=== PATIENT | male | born 1995 | race Hispanic/Latino ===

== ENCOUNTER 2017-12-29 18:27 | Inpatient (IN) | payer OTHER ==
[~2017-12-29] VITALS: Ht 182.9 cm; Wt 143.3 kg
[2017-12-29] MEDS ORDERED: ACETAMINOPHEN-CODEINE ELIXIR 5 ML UDCUP ONE (19:38)
[2017-12-29 19:49] LABS: BASOPHILS % (AUTO) 0.7 % (0.0-5.0); HEMATOCRIT 42.9 % (42-54); LYMPHOCYTES % (AUTO) 11.5 % (21.0-51.0); MEAN CORPUSCULAR HEMOGLOBIN 29.4 pg (27.0-33.0); MEAN CORPUSCULAR HGB CONC 34.2 g/dL (32.0-36.0); MEAN CORPUSCULAR VOLUME 86.1 fL (79-99); MONOCYTES % (AUTO) 6.2 % (3.0-13.0); NEUTROPHILS % (AUTO) 80.6 % (40.0-77.0); NUCLEATED RED BLOOD CELLS 0.2 % (0.0-0.19); PLATELET COUNT (AUTO) 381 K/uL (130-400); RED BLOOD CELL COUNT(AUTO) 4.98 MIL/uL (4.50-6.20); RED CELL DISTRIBUTION WIDTH 13.8 % (11.0-15.5); WHITE BLOOD COUNT (AUTO) 11.6 K/uL (4.8-10.8)
[2017-12-29] MEDS ORDERED: SODIUM CHLORIDE 0.9% 1000ML 1,000 ML IV ONE (20:11)
[2017-12-29] MEDS ORDERED: ZOSYN 3.375GM+NS 50ML 50 ML IV ONE (20:11)
[2017-12-29] MEDS ORDERED: SODIUM CHLORIDE 0.9% 100 ML IV ONE (20:12)
[2017-12-29 20:24] LABS: ALBUMIN 2.7 g/dL (3.5-5.0); BILIRUBIN,TOTAL 0.5 mg/dL (0.2-1.0); CREATININE 1.3 mg/dL (0.5-1.5); TOTAL PROTEIN, SERUM 9.1 g/dL (6.0-8.3)
[2017-12-29] MEDS ORDERED: LACTATED RINGERS 1000ML 1,000 ML IV ONE (20:24)
[2017-12-29] MEDS ORDERED: AMPICILLIN SODIUM/SULBACTAM NA 1.5GM VIAL ONE (20:24)
[2017-12-29] MEDS ORDERED: GLUCAGON 1MG KIT 1 MG ML IM PRN (21:30)
[2017-12-29] MEDS ORDERED: DEXTROSE 50%-WATER 50 ML DISP.SYRIN IV PRN (21:30)
[2017-12-29] MEDS ORDERED: SODIUM CHLORIDE 0.9% 10 ML VIAL IVP PRN (21:30)
[2017-12-29 23:45] VITALS: BP 135/68
[2017-12-30] MEDS ORDERED: METF-444 PO (00:01)
[2017-12-30] MEDS ORDERED: LISI10TA7 PO (00:01)
[2017-12-30] MEDS: LACTATED RINGERS 1000ML 1,000 ML IV SCH ×4 (00:09→20:22)
[2017-12-30] MEDS: ONDANSETRON HCL 4 MG/2 ML VIAL IVP PRN ×2 (00:18→08:51)
[2017-12-30] MEDS: MORPHINE SULFATE 4 MG/1ML SYG IVP PRN ×2 (00:18→08:52)
[2017-12-30] MEDS: UNASYN 3GM+NS 100ML 100 ML IV SCH ×4 (03:34→20:21)
[2017-12-30 03:45] LABS: BASOPHILS % (AUTO) 0.7 % (0.0-5.0); EOSINOPHILS % (AUTO) 0.6 % (0.0-8.0); HEMATOCRIT 39.2 % (42-54); LYMPHOCYTES % (AUTO) 17.6 % (21.0-51.0); MEAN CORPUSCULAR HEMOGLOBIN 28.3 pg (27.0-33.0); MEAN CORPUSCULAR HGB CONC 33.1 g/dL (32.0-36.0); MEAN CORPUSCULAR VOLUME 85.6 fL (79-99); MONOCYTES % (AUTO) 8.5 % (3.0-13.0); NEUTROPHILS % (AUTO) 72.6 % (40.0-77.0); PLATELET COUNT (AUTO) 286 K/uL (130-400); RED BLOOD CELL COUNT(AUTO) 4.58 MIL/uL (4.50-6.20); RED CELL DISTRIBUTION WIDTH 13.9 % (11.0-15.5); WHITE BLOOD COUNT (AUTO) 8.5 K/uL (4.8-10.8)
[2017-12-30 03:52] LABS: HEMOGLOBIN A1C 11.8 % (4.0-6.0)
[2017-12-30 03:58] LABS: ALBUMIN 2.4 g/dL (3.5-5.0); BILIRUBIN,TOTAL 0.4 mg/dL (0.2-1.0); CREATININE 1.1 mg/dL (0.5-1.5); POTASSIUM 3.9 mmol/L (3.5-5.1); TOTAL PROTEIN, SERUM 8.1 g/dL (6.0-8.3)
[2017-12-30 04:15] LABS: CRP QUANTITATIVE 413.2 mg/L (0.00-9.0)
[2017-12-30 04:31] VITALS: BP 136/66
[2017-12-30] MEDS ORDERED: INSULIN R PO SS1 SQ SCH (07:30)
[2017-12-30 07:45] VITALS: BP 131/65
[2017-12-30] MEDS ORDERED: ENOXAPARIN SODIUM 40 MG/0.4 ML SYRINGE SQ SCH (09:00)
[2017-12-30] MEDS: PANTOPRAZOLE SODIUM 40 MG TABLET.DR PO SCH (09:00)
[2017-12-30 11:23] VITALS: BP 131/78
[2017-12-30] MEDS: INSULIN HUMULIN R 100 UNIT/ML 3ML SQ SCH ×3 (12:18→23:44)
[2017-12-30] MEDS ORDERED: MEPERIDINE-PF 25 MG/ML SYG IVP PRN (13:45)
[2017-12-30 16:48] VITALS: BP 152/89
[2017-12-30 19:50] VITALS: BP 136/83
[2017-12-31] VITALS: BP 146/63
[2017-12-31] MEDS: UNASYN 3GM+NS 100ML 100 ML IV SCH ×4 (03:19→19:55)
[2017-12-31] MEDS: LACTATED RINGERS 1000ML 1,000 ML IV SCH ×3 (03:35→19:56)
[2017-12-31 03:38] VITALS: BP 133/78
[2017-12-31] MEDS: INSULIN HUMULIN R 100 UNIT/ML 3ML SQ SCH ×3 (05:53→18:33)
[2017-12-31 07:53] VITALS: BP 138/67
[2017-12-31] MEDS: PANTOPRAZOLE SODIUM 40 MG TABLET.DR PO SCH (09:00)
[2017-12-31 11:58] VITALS: BP 128/69
[2017-12-31 15:53] VITALS: BP 132/71
[2017-12-31 19:38] VITALS: BP 140/85
[2017-12-31] MEDS: INSULIN GLARGINE 100 UNITS/ML 10 ML VIAL SQ SCH (21:01)
[2018-01-01] VITALS (7 sets, daily range): BP systolic 137–157; BP diastolic 77–93
[2018-01-01] MEDS: UNASYN 3GM+NS 100ML 100 ML IV SCH ×4 (02:31→22:21)
[2018-01-01 04:22] LABS: BASOPHILS % (AUTO) 0.7 % (0.0-5.0); EOSINOPHILS % (AUTO) 2.1 % (0.0-8.0); HEMATOCRIT 40.1 % (42-54); LYMPHOCYTES % (AUTO) 15.4 % (21.0-51.0); MEAN CORPUSCULAR HEMOGLOBIN 28.2 pg (27.0-33.0); MEAN CORPUSCULAR HGB CONC 32.9 g/dL (32.0-36.0); MEAN CORPUSCULAR VOLUME 85.7 fL (79-99); MONOCYTES % (AUTO) 7.2 % (3.0-13.0); NEUTROPHILS % (AUTO) 74.6 % (40.0-77.0); PLATELET COUNT (AUTO) 326 K/uL (130-400); RED BLOOD CELL COUNT(AUTO) 4.68 MIL/uL (4.50-6.20); RED CELL DISTRIBUTION WIDTH 13.8 % (11.0-15.5); WHITE BLOOD COUNT (AUTO) 10.1 K/uL (4.8-10.8)
[2018-01-01 04:30] LABS: INR 0.98 (0.85-1.15); PROTHROMBIN TIME 10.3 SEC (9.6-11.6)
[2018-01-01 04:34] LABS: ALBUMIN 2.4 g/dL (3.5-5.0); BILIRUBIN,TOTAL 0.3 mg/dL (0.2-1.0); CREATININE 0.9 mg/dL (0.5-1.5); POTASSIUM 3.6 mmol/L (3.5-5.1); TOTAL PROTEIN, SERUM 8.4 g/dL (6.0-8.3)
[2018-01-01] MEDS: LACTATED RINGERS 1000ML 1,000 ML IV SCH ×3 (05:10→19:52)
[2018-01-01] MEDS: INSULIN HUMULIN R 100 UNIT/ML 3ML SQ SCH ×5 (06:15→23:55)
[2018-01-01] MEDS ORDERED: POTASSIUM CHLORIDE 20MEQ/100ML 100 ML IV PRN (08:15)
[2018-01-01] MEDS ORDERED: LIDOCAINE HCL-MPF 1% 2ML VIAL IVP PRN (08:15)
[2018-01-01] MEDS: PANTOPRAZOLE 40 MG/VIAL IVP SCH (09:48)
[2018-01-01] MEDS: INSULIN GLARGINE 100 UNITS/ML 10 ML VIAL SQ SCH (22:25)
[2018-01-02] MEDS: UNASYN 3GM+NS 100ML 100 ML IV SCH ×4 (03:43→20:44)
[2018-01-02 04:09] VITALS: BP 148/91
[2018-01-02] MEDS: LACTATED RINGERS 1000ML 1,000 ML IV SCH ×3 (05:14→22:51)
[2018-01-02 05:24] LABS: HEMATOCRIT 40.2 % (42-54); LYMPHOCYTES % (AUTO) 24.4 % (21.0-51.0); MEAN CORPUSCULAR HEMOGLOBIN 29.2 pg (27.0-33.0); MEAN CORPUSCULAR HGB CONC 34.1 g/dL (32.0-36.0); MEAN CORPUSCULAR VOLUME 85.8 fL (79-99); NEUTROPHILS % (AUTO) 63.6 % (40.0-77.0); NUCLEATED RED BLOOD CELLS 0.1 % (0.0-0.19); PLATELET COUNT (AUTO) 425 K/uL (130-400); RED BLOOD CELL COUNT(AUTO) 4.69 MIL/uL (4.50-6.20); RED CELL DISTRIBUTION WIDTH 14.2 % (11.0-15.5)
[2018-01-02 05:40] LABS: ALBUMIN 2.5 g/dL (3.5-5.0); BILIRUBIN,TOTAL 0.4 mg/dL (0.2-1.0); POTASSIUM 3.5 mmol/L (3.5-5.1); TOTAL PROTEIN, SERUM 8.6 g/dL (6.0-8.3)
[2018-01-02] MEDS: INSULIN HUMULIN R 100 UNIT/ML 3ML SQ SCH ×4 (06:56→23:39)
[2018-01-02 07:48] VITALS: BP 155/95
[2018-01-02] MEDS: PANTOPRAZOLE 40 MG/VIAL IVP SCH (10:22)
[2018-01-02 11:36] VITALS: BP 146/96
[2018-01-02 16:24] VITALS: BP 141/91
[2018-01-02 19:53] VITALS: BP 144/82
[2018-01-02] MEDS: INSULIN GLARGINE 100 UNITS/ML 10 ML VIAL SQ SCH (20:49)
[2018-01-02 23:00] VITALS: BP 141/79
[2018-01-03] VITALS (24 sets, daily range): BP systolic 105–150; BP diastolic 51–91
[2018-01-03] MEDS: UNASYN 3GM+NS 100ML 100 ML IV SCH ×3 (03:30→15:54)
[2018-01-03 04:57] LABS: BASOPHILS % (AUTO) 0.8 % (0.0-5.0); EOSINOPHILS % (AUTO) 2.9 % (0.0-8.0); HEMATOCRIT 35.3 % (42-54); LYMPHOCYTES % (AUTO) 21.5 % (21.0-51.0); MEAN CORPUSCULAR HEMOGLOBIN 28.2 pg (27.0-33.0); MEAN CORPUSCULAR HGB CONC 33.3 g/dL (32.0-36.0); MEAN CORPUSCULAR VOLUME 84.7 fL (79-99); MONOCYTES % (AUTO) 5.7 % (3.0-13.0); NEUTROPHILS % (AUTO) 69.1 % (40.0-77.0); NUCLEATED RED BLOOD CELLS 0.1 % (0.0-0.19); PLATELET COUNT (AUTO) 296 K/uL (130-400); RED BLOOD CELL COUNT(AUTO) 4.16 MIL/uL (4.50-6.20); RED CELL DISTRIBUTION WIDTH 13.7 % (11.0-15.5); WHITE BLOOD COUNT (AUTO) 7.4 K/uL (4.8-10.8)
[2018-01-03 05:01] LABS: CREATININE 0.9 mg/dL (0.5-1.5); POTASSIUM 3.9 mmol/L (3.5-5.1)
[2018-01-03] MEDS: INSULIN HUMULIN R 100 UNIT/ML 3ML SQ SCH ×3 (06:00→17:43)
[2018-01-03] MEDS ORDERED: BUPIVACAINE/EPI/PF 0.5% 30ML VIAL IJ ONE (08:42)
[2018-01-03] MEDS ORDERED: SODIUM CHLORIDE 0.9% 1000ML 1,000 ML IV ONE (08:47)
[2018-01-03] MEDS: PANTOPRAZOLE 40 MG/VIAL IVP SCH (09:00)
[2018-01-03] MEDS ORDERED: IOHEXOL-350 50ML VIAL IV ONE (09:13)
[2018-01-03] MEDS ORDERED: ONDANSETRON HCL 4 MG/2 ML VIAL ONE (09:37)
[2018-01-03] MEDS ORDERED: DEXAMETHASONE SOD PHOSPHATE 10MG/ML 1ML VIAL ONE (09:37)
[2018-01-03] MEDS ORDERED: NEOSTIGMINE 5MG/5ML SYR IV ONE (09:37)
[2018-01-03] MEDS ORDERED: ROCURONIUM 10MG/1ML SYR 10 MG/ML ML ONE ×2 (09:37→10:17)
[2018-01-03] MEDS ORDERED: LIDOCAINE PF 2% 5ML ABBOJECT ONE (09:37)
[2018-01-03] MEDS ORDERED: MIDAZOLAM HCL 1 MG/ML 2ML VIAL ONE (09:37)
[2018-01-03] MEDS ORDERED: PROPOFOL 10 MG/ML 20ML VIAL IV ONE ×2 (09:37→10:53)
[2018-01-03] MEDS ORDERED: FENTANYL CITRATE PF 50 MCG/1 ML 2ML VIAL ONE (09:38)
[2018-01-03] MEDS ORDERED: GLYCOPYRROLATE 1 MG/5 ML SYRINGE ONE (11:28)
[2018-01-03] MEDS ORDERED: MEPERIDINE-PF 25 MG/ML SYG ONE ×2 (11:56→12:07)
[2018-01-03] MEDS ORDERED: TRAMADOL HCL 50 MG TABLET PO PRN ×2 (13:15)
[2018-01-03] MEDS ORDERED: ACETAMINOPHEN 325 MG TAB PO PRN (13:15)
[2018-01-03] MEDS ORDERED: MEPERIDINE-PF 25 MG/ML SYG IV PRN (13:15)
[2018-01-03] MEDS: LACTATED RINGERS 1000ML 1,000 ML IV SCH (13:46)
[2018-01-03] MEDS ORDERED: METF-444 PO (16:52)
== END 2018-01-03 18:59 | disposition home or self-care (01) | DRG 853 ==
LOC: EDH 18:27 → EDHIP 18:28 → 4BH 23:55
PROVIDERS: ADMIT Hospitalist; ATTEND Hospitalist
PROC: BF131ZZ Fluoroscopy of Gallbladder and Bile Ducts using Low Osmolar Contrast (ICD-10-PCS; 2018-01-03)
PROC: 0FT44ZZ Resection of Gallbladder, Percutaneous Endoscopic Approach (ICD-10-PCS; principal; 2018-01-03 09:35)
DX: A41.9 Sepsis, unspecified organism (principal); K65.9 Peritonitis, unspecified; K80.00 Calculus of gallbladder with acute cholecystitis without obstruction; Z68.41 Body mass index [BMI] 40.0-44.9, adult; E66.01 Morbid (severe) obesity due to excess calories; E86.0 Dehydration; I10 Essential (primary) hypertension; E11.65 Type 2 diabetes mellitus with hyperglycemia; K29.70 Gastritis, unspecified, without bleeding; K76.0 Fatty (change of) liver, not elsewhere classified; R16.0 Hepatomegaly, not elsewhere classified; Z79.4 Long term (current) use of insulin; Z79.899 Other long term (current) drug therapy; Z90.49 Acquired absence of other specified parts of digestive tract; Z91.19 Patient's noncompliance with other medical treatment and regimen
CPT/HCPCS: 36415; 74300; 76705; 80048; 80053; 82948; 83036; 83605; 83690; 85025; 85610; 86140; 88304; C1758; C9113; J0295; J1100; J1650; J1815; J2001; J2175; J2250; J2270; J2405; J2543; J2704; J2710; J3010; J3490; J7030; J7120; Q9967

== ENCOUNTER 2022-02-02 13:36 | Inpatient (IN) | payer OTHER ==
[~2022-02-02] VITALS: Ht 182.9 cm; Wt 131.7 kg
[~2022-02-02 13:36] MED LIST: LISI10TA24 PO; METF-444 PO
[2022-02-02] MEDS ORDERED: DICYCLOMINE HCL 10 MG/5 ML ML PO ONE (14:00)
[2022-02-02] MEDS ORDERED: MAG/ALUM/SIMETH 30 ML UDCUP PO ONE (14:00)
[2022-02-02] MEDS ORDERED: ONDANSETRON 4MG INJ IVP ONE (14:00)
[2022-02-02] MEDS ORDERED: LIDOCAINE HCL 2% VISCOUS 15 ML UDCUP PO ONE (14:00)
[2022-02-02] MEDS ORDERED: FAMOTIDINE 20MG VIAL IV ONE (14:00)
[2022-02-02 14:10] LABS: BASOPHILS % (AUTO) 0.5 % (0.0-5.0); EOSINOPHILS % (AUTO) 0.2 % (0.0-8.0); HEMATOCRIT 45.4 % (42-54); MEAN CORPUSCULAR HEMOGLOBIN 29.3 pg (27.0-33.0); MEAN CORPUSCULAR HGB CONC 33.5 g/dL (32.0-36.0); MEAN CORPUSCULAR VOLUME 87.5 fL (79-99); MONOCYTES % (AUTO) 5.4 % (3.0-13.0); NEUTROPHILS % (AUTO) 83.4 % (40.0-77.0); PLATELET COUNT (AUTO) 284 K/uL (130-400); RED BLOOD CELL COUNT(AUTO) 5.19 MIL/uL (4.50-6.20); RED CELL DISTRIBUTION WIDTH 15.2 % (11.0-15.5); WHITE BLOOD COUNT (AUTO) 8.8 K/uL (4.8-10.8)
[2022-02-02 14:35] LABS: APPEARANCE,URINE CLEAR (CLEAR); BILIRUBIN,URINE 2 mg/dL (NEGATIVE); COLOR,URINE DARK-YELLOW (YELLOW); CREATININE 0.9 mg/dL (0.5-1.5); GLUCOSE, URINE (UA) >=1000 mg/dL (NEGATIVE); KETONES,URINE 100 mg/dL (NEGATIVE); LEUKOCYTE ESTERASE ,URINE NEGATIVE Leu/uL (NEGATIVE); NITRATE,URINE NEGATIVE (NEGATIVE); OCCULT BLOOD,URINE NEGATIVE (NEGATIVE); PH,URINE 5.5 (5.0-8.0); POTASSIUM 4.7 mmol/L (3.5-5.1); PROTEIN,URINE 20 mg/dL (NEGATIVE); UROBILINOGEN,URINE 3 mg/dL (0.2-1.0)
[2022-02-02 14:36] LABS: RBC,URINE 0-1 /HPF (0-1); SQUAMOUS EPITHELIAL CELL,UR RARE /HPF (0-2)
[2022-02-02] MEDS ORDERED: INSULIN HUMULIN R 100 UNIT/ML 3ML IV ONE (15:00)
[2022-02-02] MEDS: ZOSYN 3.375GM +NS 50ML IV SCH ×2 (15:30→23:39)
[2022-02-02] MEDS: 0.9%NACL 1000ML 1,000 ML IV SCH (16:00)
[2022-02-02] MEDS ORDERED: DiphenhydrAMINE HCL 50 MG/ML VIAL IV PRN (16:00)
[2022-02-02] MEDS ORDERED: DEXTROSE 50%-WATER 50 ML DISP.SYRIN IV PRN (16:00)
[2022-02-02] MEDS ORDERED: GLUCAGON 1MG KIT 1 MG ML IM PRN (16:00)
[2022-02-02] MEDS ORDERED: DIPHENHYDRAMINE HCL 25 MG CAPSULE PO PRN (16:00)
[2022-02-02 16:04] LABS: HEMOGLOBIN A1C 10.5 % (4.0-6.0)
[2022-02-02] MEDS: 0.9% NACL 500ML IV.SOLN 500 ML IV SCH ×2 (16:19→23:18)
[2022-02-02] MEDS: INSULIN HUMULIN R 100 UNIT/ML 3ML SQ SCH ×2 (18:00→23:57)
[2022-02-02 21:55] VITALS: BP 156/88
[2022-02-03] VITALS: BP 134/76
[2022-02-03] MEDS: HYDROMORPHONE 0.5 MG SYG (0.5MG/0.5ML) IVP PRN ×2 (00:37→09:02)
[2022-02-03] MEDS: 0.9%NACL 1000ML 1,000 ML IV SCH ×4 (02:00→20:31)
[2022-02-03 04:00] VITALS: BP 142/82
[2022-02-03 05:38] LABS: HEMATOCRIT 43.6 % (42-54); MEAN CORPUSCULAR HEMOGLOBIN 29.8 pg (27.0-33.0); MEAN CORPUSCULAR HGB CONC 33.7 g/dL (32.0-36.0); MEAN CORPUSCULAR VOLUME 88.4 fL (79-99); RED BLOOD CELL COUNT(AUTO) 4.93 MIL/uL (4.50-6.20); RED CELL DISTRIBUTION WIDTH 15.7 % (11.0-15.5); WHITE BLOOD COUNT (AUTO) 11.8 K/uL (4.8-10.8)
[2022-02-03 06:00] LABS: POTASSIUM 4.5 mmol/L (3.5-5.1)
[2022-02-03] MEDS: INSULIN HUMULIN R 100 UNIT/ML 3ML SQ SCH ×4 (06:19→20:46)
[2022-02-03 08:00] VITALS: BP 130/78
[2022-02-03 08:19] LABS: ALBUMIN 3.3 g/dL (3.5-5.0); BILIRUBIN,DIRECT 4.7 mg/dL (0.0-0.3); TOTAL PROTEIN, SERUM 7.5 g/dL (6.0-8.3)
[2022-02-03] MEDS: ZOSYN 3.375GM +NS 50ML IV SCH ×3 (08:34→23:01)
[2022-02-03] MEDS: PANTOPRAZOLE 40 MG/VIAL IVP SCH (08:34)
[2022-02-03] MEDS ORDERED: IOHEXOL 350 MG/ML 100ML INFUS..BTL IV ONE (10:05)
[2022-02-03 12:00] VITALS: BP 145/88
[2022-02-03 16:00] VITALS: BP 143/87
[2022-02-03 20:00] VITALS: BP_SYST 131; BP_SYST 135; BP_DIAS 61; BP_DIAS 75
[2022-02-04] VITALS (14 sets, daily range): BP systolic 103–141; BP diastolic 68–82
[2022-02-04] MEDS: 0.9%NACL 1000ML 1,000 ML IV SCH ×3 (04:23→20:28)
[2022-02-04 05:16] LABS: HEMATOCRIT 39.1 % (42-54); MEAN CORPUSCULAR HEMOGLOBIN 29.6 pg (27.0-33.0); MEAN CORPUSCULAR HGB CONC 33.8 g/dL (32.0-36.0); MEAN CORPUSCULAR VOLUME 87.7 fL (79-99); RED BLOOD CELL COUNT(AUTO) 4.46 MIL/uL (4.50-6.20); RED CELL DISTRIBUTION WIDTH 15.9 % (11.0-15.5); WHITE BLOOD COUNT (AUTO) 9.3 K/uL (4.8-10.8)
[2022-02-04 05:33] LABS: ALBUMIN 2.6 g/dL (3.5-5.0); CREATININE 0.9 mg/dL (0.5-1.5); TOTAL PROTEIN, SERUM 6.6 g/dL (6.0-8.3)
[2022-02-04] MEDS: INSULIN HUMULIN R 100 UNIT/ML 3ML SQ SCH ×4 (05:42→20:34)
[2022-02-04] MEDS ORDERED: MIDAZOLAM HCL 1 MG/ML 2ML VIAL ONE (06:37)
[2022-02-04] MEDS ORDERED: DEXAMETHASONE SOD PHOSPHATE 10MG/ML 1ML VIAL ONE (06:37)
[2022-02-04] MEDS ORDERED: LIDOCAINE PF 100MG/5ML (2%) SYRINGE 5ML ONE (06:37)
[2022-02-04] MEDS ORDERED: GLYCOPYRROLATE 1 MG/5 ML SYRINGE ONE (06:37)
[2022-02-04] MEDS ORDERED: SUCCINYLCHOLINE 200MG/10ML SYR ONE (06:37)
[2022-02-04] MEDS ORDERED: ONDANSETRON 4MG INJ ONE (06:37)
[2022-02-04] MEDS ORDERED: ROCURONIUM 10MG/1ML SYR 10 MG/ML ML ONE (06:38)
[2022-02-04] MEDS ORDERED: NEOSTIGMINE 5MG/5ML SYR IV ONE (06:38)
[2022-02-04] MEDS ORDERED: PROPOFOL 10 MG/ML 20ML VIAL IV ONE (06:38)
[2022-02-04] MEDS ORDERED: FENTANYL CITRATE PF 50 MCG/1 ML 2ML VIAL ONE (06:38)
[2022-02-04] MEDS: ZOSYN 3.375GM +NS 50ML IV SCH ×3 (06:47→23:01)
[2022-02-04] MEDS ORDERED: IOHEXOL-350 50ML VIAL IV ONE (08:04)
[2022-02-04] MEDS: PANTOPRAZOLE 40 MG/VIAL IVP SCH (09:00)
[2022-02-04] MEDS: LISINOPRIL 10 MG TABLET PO SCH (09:00)
[2022-02-04 11:27] LABS: AMPHET/METH SCREEN,URINE NEGATIVE (NEGATIVE); BARBITURATE SCREEN, URINE NEGATIVE (NEGATIVE); BENZODIAZEPINES SCREEN,URINE POSITIVE (NEGATIVE); CANNABINOID SCREEN,URINE NEGATIVE (NEGATIVE); COCAINE SCREEN,URINE NEGATIVE (NEGATIVE); OPIATE SCREEN,URINE NEGATIVE (NEGATIVE); PHENCYCLIDINE SCREEN,URINE NEGATIVE (NEGATIVE)
[2022-02-04] MEDS ORDERED: AMLO-257 PO (11:45)
[2022-02-05] MEDS: 0.9%NACL 1000ML 1,000 ML IV SCH ×2 (03:19→14:10)
[2022-02-05 04:00] VITALS: BP 148/86
[2022-02-05 05:11] LABS: HEMATOCRIT 36.4 % (42-54); MEAN CORPUSCULAR HEMOGLOBIN 29.6 pg (27.0-33.0); MEAN CORPUSCULAR VOLUME 89.9 fL (79-99); RED BLOOD CELL COUNT(AUTO) 4.05 MIL/uL (4.50-6.20); RED CELL DISTRIBUTION WIDTH 16.2 % (11.0-15.5); WHITE BLOOD COUNT (AUTO) 9.5 K/uL (4.8-10.8)
[2022-02-05 05:26] LABS: ALBUMIN 2.3 g/dL (3.5-5.0); CREATININE 0.8 mg/dL (0.5-1.5); MAGNESIUM 1.7 mg/dL (1.80-2.40); POTASSIUM 3.6 mmol/L (3.5-5.1); TOTAL PROTEIN, SERUM 6.4 g/dL (6.0-8.3)
[2022-02-05 05:45] LABS: CRP QUANTITATIVE 215.6 mg/L (0.00-9.0)
[2022-02-05] MEDS: INSULIN HUMULIN R 100 UNIT/ML 3ML SQ SCH ×4 (05:49→20:15)
[2022-02-05] MEDS: ZOSYN 3.375GM +NS 50ML IV SCH ×3 (06:42→23:17)
[2022-02-05 07:11] VITALS: BP_SYST 120; BP_SYST 141; BP_DIAS 74; BP_DIAS 86
[2022-02-05] MEDS: PANTOPRAZOLE 40 MG/VIAL IVP SCH (08:49)
[2022-02-05] MEDS: LISINOPRIL 10 MG TABLET PO SCH (08:50)
[2022-02-05 11:20] VITALS: BP 150/96
[2022-02-05] MEDS: KETOROLAC 15MG/ML VIAL (15MG/ML) IV PRN ×2 (14:11→20:10)
[2022-02-05] MEDS: MAGNESIUM 2GM PREMIX 50ML 50 ML IV PRN (14:13)
[2022-02-05 16:05] VITALS: BP 145/90
[2022-02-05 18:21] LABS: ABG BASE EXCESS 0.8 mmol/L (-2.0-3.0); ABG HCO3 25.8 mmol/L (21.0-28.0); ABG OXYGEN SATURATION 94.8 % (95.0-99.0); ABG PCO2 43 mmHg (35-48)
[2022-02-05 20:41] VITALS: BP 128/75
[2022-02-05 23:51] VITALS: BP 133/81
[2022-02-06] MEDS: 0.9%NACL 1000ML 1,000 ML IV SCH (00:58)
[2022-02-06 04:02] VITALS: BP 137/83
[2022-02-06 05:06] LABS: BASOPHILS % (AUTO) 0.7 % (0.0-5.0); EOSINOPHILS % (AUTO) 3.7 % (0.0-8.0); HEMATOCRIT 34.8 % (42-54); LYMPHOCYTES % (AUTO) 13.6 % (21.0-51.0); MEAN CORPUSCULAR HEMOGLOBIN 29.3 pg (27.0-33.0); MEAN CORPUSCULAR HGB CONC 33.6 g/dL (32.0-36.0); MONOCYTES % (AUTO) 6.1 % (3.0-13.0); NEUTROPHILS % (AUTO) 74.3 % (40.0-77.0); PLATELET COUNT (AUTO) 251 K/uL (130-400); WHITE BLOOD COUNT (AUTO) 8.9 K/uL (4.8-10.8)
[2022-02-06 05:23] LABS: ALBUMIN 2.2 g/dL (3.5-5.0); CREATININE 0.9 mg/dL (0.5-1.5); MAGNESIUM 1.9 mg/dL (1.80-2.40); POTASSIUM 3.6 mmol/L (3.5-5.1); TOTAL PROTEIN, SERUM 6.4 g/dL (6.0-8.3)
[2022-02-06] MEDS: ZOSYN 3.375GM +NS 50ML IV SCH (06:00)
[2022-02-06] MEDS: INSULIN HUMULIN R 100 UNIT/ML 3ML SQ SCH (06:05)
[2022-02-06] MEDS: MAGNESIUM 2GM PREMIX 50ML 50 ML IV PRN (06:16)
[2022-02-06 06:19] LABS: CRP QUANTITATIVE 189.1 mg/L (0.00-9.0)
[2022-02-06 07:16] VITALS: BP 133/88
[2022-02-06] MEDS: PANTOPRAZOLE 40 MG/VIAL IVP SCH (09:14)
[2022-02-06] MEDS: LISINOPRIL 10 MG TABLET PO SCH (09:14)
== END 2022-02-06 14:25 | disposition home or self-care (01) | DRG 444 ==
LOC: EDH 13:38 → EDHIP 13:39 → 3BH 21:52 → 3AH 02-04 14:22 → 3BH 02-04 14:23
PROVIDERS: ADMIT Hospitalist; ATTEND Hospitalist
PROC: 0F798DZ Dilation of Common Bile Duct with Intraluminal Device, Via Natural or Artificial Opening Endoscopic (ICD-10-PCS; principal; 2022-02-04)
PROC: BF131ZZ Fluoroscopy of Gallbladder and Bile Ducts using Low Osmolar Contrast (ICD-10-PCS; 2022-02-04)
DX: K80.50 Calculus of bile duct without cholangitis or cholecystitis without obstruction (principal); K85.90 Acute pancreatitis without necrosis or infection, unspecified; R74.01 Elevation of levels of liver transaminase levels; E66.01 Morbid (severe) obesity due to excess calories; E11.65 Type 2 diabetes mellitus with hyperglycemia; I10 Essential (primary) hypertension; Z68.39 Body mass index [BMI] 39.0-39.9, adult
CPT/HCPCS: 36415; 36600; 43274; 71045; 74177; 74181; 74328; 74330; 76705; 80048; 80053; 80076; 80305; 81001; 82435; 82803; 82947; 82948; 83036; 83605; 83690; 83735; 83880; 84132; 84145; 84295; 84484; 85018; 85025; 85027; 86140; 94660; C1769; C1773; C9113; G0378; J0330; J1100; J1170; J1815; J1885; J2001; J2250; J2405; J2543; J2704; J2710; J3010; J3475; J3490; J7030; J7040; Q9967